=== PATIENT | female | born 1930 | race Caucasian/White ===

== ENCOUNTER 2017-10-06 18:52 | Emergency (ER) | payer OTHER, BC ==
--- NOTE | 2017-10-06 19:43 | PDOC ---
Rapid Medical Evaluation Time Seen by Provider: 10/06/17 19:37 Medical Evaluation: Allergies Allergy/AdvReac Type Severity Reaction Status Date / Time No Known Allergies Allergy Verified 02/13/17 09:50 I have performed a brief in-person evaluation of this patient. The patient presents with a chief complaint of: constipation. had a very hard BM yesterday which she states was not normal. Prior to that she does not recall when her last BM was. Pertinent physical exam findings: none I have ordered the following: flat and upright xray abd The patient will proceed to the ED for further evaluation.
[2017-10-06 19:45] VITALS: BP 156/101; PULSE 71; TEMP 97.5; BMI 25.7
--- NOTE | 2017-10-06 21:07 | PDOC ---
History of Present Illness - General Chief Complaint: Constipation Stated Complaint: CONSTIPATION Time Seen by Provider: 10/06/17 19:37 - History of Present Illness Initial Comments: 10/06/17 21:07 CHIEF COMPLAINT: HISTORY OF PRESENT ILLNESS: 87 yo F with hx of "thyroid problem" presents to fast track with c/o of constipation. Patient reports that she has chronic constipation and yesterday she had a bowel movement but was only able to move " a little and I had to use my finger." Patient reports that she has an appointment with GI next week but could not wait any longer because "this is affecting my sleep." Patient denies any nausea or vomiting. No recent travel or sick contacts. PAST MEDICAL HISTORY: Denies past medical history FAMILY HISTORY: Denies SOCIAL HISTORY:Denies tobacco, alcohol, illicit drug use. SURGICAL HISTORY: Denies ALLERGIES: No known drug allergies REVIEW OF SYSTEMS General/Constitutional: Denies fever or chills. Denies weakness, weight change. HEENT: Denies change in vision. Denies ear pain or discharge. Denies sore throat. Cardiovascular: Denies chest pain or shortness of breath. Respiratory: Denies cough, wheezing, or hemoptysis. Gastrointestinal: "I'm pretty constipated." Denies nausea, vomiting, diarrhea or constipation. Denies rectal bleeding. Genitourinary: Denies dysuria, frequency, or change in urination. Musculoskeletal: Denies joint or muscle swelling or pain. Denies neck or back pain. Skin and breasts: Denies rash or easy bruising. Neurologic: Denies headache, vertigo, loss of consciousness, or loss of sensation. PHYSICAL EXAM General Appearance: Well-appearing, appropriately dressed. No apparent distress , no intoxication. HEENT: EOMI, PERRLA, normal ENT inspection, normal voice, TMs normal, pharynx normal. No conjunctival pallor. No photophobia, scleral icterus. Neck: Supple. Trachea midline. No tenderness, rigidity, carotid bruit, stridor , lymphadenopathy, or thyromegaly. Respiratory/Chest: Lungs CTAB. No shortness of breath, chest tenderness, respiratory distress, accessory muscle use. No crackles, rales, rhonchi, stridor , wheezing, dullness Cardiovascular: RRR. S1, S2. No JVD, murmur, bradycardia, tachycardia. Vascular Pulses: Dorsalis-Pedis (R): 2+, Dorsalis-Pedis (L): 2+ Gastrointestinal/Abdominal: Normal bowel sounds. Abdomen soft, non-distended. No tenderness or rebound tenderness. No organomegaly, pulsatile mass, guarding , hernia, hepatomegaly, splenomegaly. Lymphatic: No adenopathy, tenderness. Musculoskeletal/Extremities: Normal inspection. FROM of all extremities, normal capillary refill. Pelvis Stable. No CVA tenderness. No tenderness to extremities, pedal edema, swelling, erythema or deformity. Integumentary: Appropriate color, dry, warm. No cyanosis, erythema, jaundice or rash Neurologic: electronics test engineer II-XII intact. Fully oriented, alert. Appropriate mood/affect. Motor strength 5/5. No appreciable EOM palsy, facial droop or sensory deficit. Past History - Past Medical History Allergies/Adverse Reactions: Allergies Allergy/AdvReac Type Severity Reaction Status Date / Time No Known Allergies Allergy Verified 10/06/17 19:41 Home Medications: Ambulatory Orders Docusate Sodium [Colace] 100 mg PO TID #20 capsule 10/06/17 Levothyroxine [Synthroid -] 75 mcg PO DAILY 10/06/17 Sennosides [Senna Laxative] 25 mg PO BID #14 tablet 10/06/17 Sodium Phosphate/Na Biphos [Fleet Adult Rectal Enema] 133 ml RC ONCE #1 enema COPD: No GI Disorders: Yes (Constipation) Thyroid Disease: Yes (Hyperthyroid) - Suicide/Smoking/Psychosocial Hx Smoking History: Never smoked Have you smoked in the past 12 months: No Information on smoking cessation initiated: No Hx Alcohol Use: No Drug/Substance Use Hx: No Substance Use Type: None *Physical Exam - Vital Signs Last Vital Signs Temp Pulse Resp BP Pulse Ox 97.5 F L 71 18 156/101 97 10/06/17 19:42 10/06/17 19:42 10/06/17 19:42 10/06/17 19:42 10/06/17 19:42 Medical Decision Making - Medical Decision Making 10/06/17 21:10 87 yo F with hx of "thyroid problem" presents to fast track with c/o of constipation. -abdominal x-ray ordered in triage, no obstruction seen -fleet enema -senna -colace Advised patient to take medication as prescribed and follow up with GI next week as planned. Advised patient of signs and symptoms for return to ED. Patient verbalized understanding and agrees to plan. *DC/Admit/Observation/Transfer Diagnosis at time of Disposition: Constipation - Discharge Dispostion Disposition: HOME Condition at time of disposition: Stable Admit: No - Prescriptions Prescriptions: Docusate Sodium [Colace] 100 mg PO TID #20 capsule Sennosides [Senna Laxative] 25 mg PO BID #14 tablet Sodium Phosphate/Na Biphos [Fleet Adult Rectal Enema] 133 ml RC ONCE #1 enema - Referrals Referrals: David Yan MD [Staff Physician] - - Patient Instructions Printed Discharge Instructions: DI for Constipation Additional Instructions: Please take medications as prescribed. If you develop any fever, nausea, vomiting, or any abdominal pain, please return to the ER immediately. Follow up with your electronics test engineer next week as planned. - Post Discharge Activity
== END 2017-10-06 21:25 | disposition home or self-care (01) ==
LOC: JERFT 18:52
DX: K59.00 Constipation, unspecified (principal); E05.90 Thyrotoxicosis, unspecified without thyrotoxic crisis or storm
CPT/HCPCS: 74019-TC-FY; 99281-25